=== PATIENT | female | born 1945 | race Caucasian/White ===

== ENCOUNTER 2016-06-09 09:21 | Day surgery (SDC) | payer MEDICARE ==
[~2016-06-09 09:21] MED LIST: ACETAMINOPHEN 1000MG/100 ML PREMIX IV ONE; FAMOTIDINE 20MG TABLET PO ONE; MECLIZINE 25 MG TABLET PO ONE; METOCLOPRAMIDE 10 MG TABLET PO ONE
[2016-06-09] MEDS ORDERED: BUPIVACAINE 0.25% W/EPI MPF 30ML VIAL IVP ONE (15:01)
[2016-06-09] MEDS ORDERED: HYDROCODONE/APAP 7.5/325MG TABLET PO ONE (15:01)
[2016-06-09] MEDS ORDERED: METOCLOPRAMIDE HCL 10 MG/2 ML VIAL IVP ONE (15:11)
[2016-06-09] MEDS ORDERED: LIDOCAINE 2% MDV (20MG/ML) 20ML VIAL IV ONE (15:11)
[2016-06-09] MEDS ORDERED: ONDANSETRON HCL IV 4 MG/2 ML VIAL IVP ONE (15:11)
[2016-06-09] MEDS ORDERED: FENTANYL PF 100MCG/2ML VIAL IV ONE (15:11)
[2016-06-09] MEDS ORDERED: PROPOFOL 10 MG/ML VIAL IV ONE (15:11)
--- NOTE | 2016-06-10 17:07 | Operative Note ---
DATE OF SURGERY: 06/09/2016 REFERRNG PHYSICIAN: Soraida Forrest D.O. PREOPERATIVE DIAGNOSES: 1. Torn medial and lateral meniscus of the right knee. 2. Chondromalacia of the right knee. POSTOPERATIVE DIAGNOSES: 1. Torn medial and lateral meniscus, right knee. 2. Synovitis, right knee (2 compartments). 3. Chondromalacia of the patella, trochlea and medial femoral condyle, lateral tibial plateau, right knee. OPERATIVE PROCEDURES: 1. Arthroscopic partial, medial and lateral meniscectomy, right knee. 2. Arthroscopic partial synovectomy, right knee (2 compartments). 3. Arthroscopic chondroplasty, medial femoral condyle and patella, right knee. Surgeon: Vini Chacon D.O. DESCRIPTION: This 70-year-old female was taken to the Operating Room and placed in the supine position on the operating room table where general anesthetic was induced. The right lower extremity was elevated and exsanguinated and the tourniquet inflated to 300 mmHg. Arthroscopic knee adames applied. Right knee prepped with Hibiclens and draped in the usual sterile fashion. An inferolateral portal was established with a 4 mm arthroscope and initial evaluation of the joint demonstrated normal appearance of the suprapatellar pouch but the patient did demonstrate grade 2 chondromalacia of the patella which showed loose fragment to the edges and chondroplasty was performed to stabilize the articular cartilage there. The trochlea also demonstrated mild grade 2 changes but it was not unstable and it was not further disturbed. The medial compartment was entered and probing of the medial meniscus revealed a root tear of the posterior horn of the medial meniscus. This was resected removing the torn portion and tapering the remainder of the meniscus from about the 12 o'clock position back to the root to stable meniscal rim. The patient had grade 2 chondromalacia of the entire weightbearing surface of the medial femoral condyle and a chondroplasty was performed to stabilize the articular cartilage there. The intercondylar notch was examined and found to be normal. The lateral compartment was entered. Grade 2 chondromalacia of the lateral tibial plateau was present but it was not unstable and not further disturbed. However, she did demonstrate a tear of the posterior horn of the lateral meniscus in a very similar fashion to the medial and resection of the tear of the posterior horn near its root was performed. It was then reprobed and confirmed to be stable. The remainder of the meniscus was normal. The patient did demonstrate synovitis in the knee in the medial and lateral compartments and some at the patellofemoral joint as well and the synovectomy was performed in those locations. The joint was then copiously irrigated and suctioned. The instruments were removed. The portals infiltrated with 0.25% Marcaine with epinephrine. Sterile dressings applied, tourniquet and knee adames released, and the patient taken to the Recovery Room in satisfactory condition. GROSS PATHOLOGY: This patient demonstrated tears of both the medial and lateral meniscal roots. In addition, there was evidence of chondromalacia at the patellofemoral articulation as well as the medial femoral condyle and lateral tibial plateau. Synovitis also present throughout the knee. CC: Dr. Lon MARTINEZ
== END 2016-06-09 12:25 | disposition home or self-care (01) ==
LOC: SUR 09:21
PROVIDERS: ATTEND Orthopaedic Surgery
DX: S83.241A Other tear of medial meniscus, current injury, right knee, initial encounter (principal); S83.281A Other tear of lateral meniscus, current injury, right knee, initial encounter; M94.261 Chondromalacia, right knee; M65.861 Other synovitis and tenosynovitis, right lower leg
CPT/HCPCS: 29880; 29876; 01400; J2405; J3010; J2765